=== PATIENT | female | born 2005 | race Caucasian/White ===

== ENCOUNTER → 2023-04-10 06:35 | Day surgery (SDC) | payer BC, SELFPAY | LOC: GI 06:35 | PROVIDERS: ATTENDING PHYSICIAN Internal Medicine | DX: K22.89 Other specified disease of esophagus (principal); K44.9 Diaphragmatic hernia without obstruction or gangrene; K31.89 Other diseases of stomach and duodenum; R11.10 Vomiting, unspecified | CPT/HCPCS: 43239; 88305; 88342 ==